=== PATIENT | female | born 1990 | race Caucasian/White ===

== ENCOUNTER 2019-08-11 04:33 | Inpatient (IN) | payer SELFPAY ==
[2019-08-11] MEDS ORDERED: Butorphanol Tartrate 1 MG/ML VIAL SLOW IVP PRN (05:33)
[2019-08-11] MEDS ORDERED: NS / Oxytocin 40 units/1000ml 1,000 ML IV PRN (05:33)
[2019-08-11] MEDS ORDERED: Lactated Ringer's 1,000 ML IV SCH (05:33)
[2019-08-11] MEDS ORDERED: Lidocaine 1% (PF) 30 ML VIAL SC PRN (05:33)
[2019-08-11] MEDS ORDERED: HYDROcodone/Acetaminophen 5/325 mg Tablet PO PRN ×2 (05:33)
[2019-08-11] MEDS ORDERED: Ondansetron PF 4 MG/2 ML Vial IVP PRN ×2 (05:33→12:41)
[2019-08-11] MEDS ORDERED: Promethazine HCl 25 MG/ML VIAL IM PRN (05:33)
[2019-08-11] MEDS ORDERED: Ibuprofen 800 MG TAB PO PRN (05:33)
[2019-08-11] MEDS ORDERED: hydrALAZINE 20 MG/ML VIAL SLOW IVP PRN ×2 (05:33→12:41)
[2019-08-11 05:44] VITALS: BMI 28.3
[2019-08-11] MEDS ORDERED: Fentanyl 4 mcg/Bup 0.1% Cadd 100 ML ONE (05:47)
[2019-08-11 05:49] LABS: Hemoglobin 14.2 g/dL (12.0-16.0); Mean Corpuscular HGB CONC 33.9 g/dL (32.0-36.0); Mean Corpuscular Hemoglobin 30.4 pg (27.0-31.0); Mean Corpuscular Volume 89.6 fL (78.0-98.0); Mean Platelet Volume 9.5 fL (7.4-10.4); Platelet Count 203 thou/uL (130-400); RBC Distribution Width 11.5 % (11.5-14.5); Red Blood Cell (RBC) Count 4.66 mill/uL (4.20-5.40); White Blood Cell (WBC) Count 15.5 thou/uL (4.8-10.8)
[2019-08-11] MEDS: Lactated Ringer's 1,000 ML IV SCH ×2 (06:27→08:41)
[2019-08-11 06:28] LABS: Syphilis Antibody Nonreactive (Nonreactive); Syphilis Antibody Index 0.04 S/CO (<1.00 Non-Reactive)
[2019-08-11 06:29] LABS: HBSAg Index 0.23 S/CO (0-0.99); Hep B Surf Ag Non-Reactive S/CO (NonReactive)
[2019-08-11] MEDS ORDERED: diphenhydrAMINE 25 MG CAP PO PRN (12:41)
[2019-08-11] MEDS ORDERED: Lanolin Ointment 7 GM TUBE TOP PRN (12:41)
[2019-08-11] MEDS ORDERED: Milk Of Magnesia 30 ML UDCUP PO PRN (12:41)
[2019-08-11] MEDS ORDERED: Bisacodyl 10 MG SUPP PR PRN (12:41)
[2019-08-11] MEDS ORDERED: Benzocaine-Menthol 82.5 ML CAN TOP PRN (12:41)
[2019-08-11] MEDS ORDERED: Adacel (T-DAP) 0.5 ML SYRINGE IM ONE (12:41)
[2019-08-11] MEDS ORDERED: Preparation H Ointment 28 GM TUBE PR PRN (12:41)
[2019-08-11] MEDS ORDERED: Misoprostol 200 MCG TAB VAG PRN (12:41)
[2019-08-11] MEDS ORDERED: Acetaminophen/Codeine 30-300mg Tablet PO PRN ×2 (12:41)
[2019-08-11] MEDS ORDERED: Zolpidem Tartrate 5 MG TAB PO PRN (12:41)
[2019-08-11] MEDS ORDERED: NS / Oxytocin 40 units/1000ml 1,000 ML IV SCH (12:45)
[2019-08-11] MEDS ORDERED: Bupivacaine PF 0.5% 30 ML VIAL ONE (12:48)
[2019-08-11] MEDS: Ibuprofen 800 MG TAB PO SCH ×2 (14:27→21:51)
[2019-08-11] MEDS: Ferrous Sulfate 325 MG TAB PO SCH (18:42)
[2019-08-11] MEDS: Docusate Calcium (SURFAK) 240 MG CAP PO SCH (21:52)
[2019-08-12] MEDS: Ibuprofen 800 MG TAB PO SCH ×2 (05:55→14:00)
[2019-08-12] MEDS: Ferrous Sulfate 325 MG TAB PO SCH (08:54)
[2019-08-12] MEDS ORDERED: Prenatal Vitamin 1 TAB PO SCH (09:00)
[2019-08-12] MEDS: Docusate Calcium (SURFAK) 240 MG CAP PO SCH (09:33)
[2019-08-12 12:05] VITALS: BP 113/71; TEMP 97.7
--- NOTE | 2019-08-12 14:25 | PDOC.PP ---
Post Progress Note Post Day #: 1 PO intake tolerated: yes Flatus: yes Ambulation: yes Vital Signs (12 hours) Temp Pulse Resp BP Pulse Ox 08/12/19 12:04 97.7 F 80 16 113/71 98 08/12/19 08:30 98.2 F 77 16 110/63 100 08/12/19 08:05 100 08/12/19 05:52 97.9 F 68 14 112/69 98 Weight Weight 150 lb - Physical Examination General: NAD Cardiovascular: no m/r/g, RRR Respiratory: clear to auscultation bilaterally, non-labored breathing Abdominal: + bowel sounds, lochia, no distention Extremities: negative homans (B) Neurological: no gross focal deficits Psychiatric: A&Ox3, normal affect (DC to home) Result Diagrams: 08/11/19 05:39 Additional Labs: Post Labs Blood Type O POSITIVE 08/11/19 06:39 Hep Bs Antigen Non-Reactive S/CO (NonReactive) 08/11/19 05:39
== END 2019-08-12 15:25 | disposition home or self-care (01) | DRG 768 ==
LOC: L&D/OP 04:33 → L&D 07:57 → 3SW 18:27
PROVIDERS: ADMIT Obstetrics & Gynecology; ATTEND Obstetrics & Gynecology
PROC: 10E0XZZ Delivery of Products of Conception, External Approach (ICD-10-PCS; principal; 2019-08-11)
PROC: 0DQR0ZZ Repair Anal Sphincter, Open Approach (ICD-10-PCS; 2019-08-11)
DX: O34.211 Maternal care for low transverse scar from previous cesarean delivery (principal); Z37.0 Single live birth; O70.20 Third degree perineal laceration during delivery, unspecified; Z3A.40 40 weeks gestation of pregnancy; O48.0 Post-term pregnancy
CPT/HCPCS: 36415; 36416; 51702; 85027; 86780; 86850; 86900; 86901; 87340; 99285; J2001; S0020